=== PATIENT | male | born 1980 | race Caucasian/White ===

== ENCOUNTER 2016-04-08 23:03 | Emergency (ER) | payer SELFPAY ==
[~2016-04-08] VITALS: Ht 188 cm; Wt 90.7 kg
[2016-04-08] MEDS ORDERED: IV NS 0.9% 1,000 ML BAG IV ONE ×2 (23:30)
[2016-04-08] MEDS ORDERED: HYDROMORPHONE INJ 2 MG/ML DISP.SYRIN IV ONE (23:30)
[2016-04-08] MEDS ORDERED: ONDANSETRON HCL/PF 4 MG/2 ML VIAL IVP ONE (23:30)
[2016-04-08] MEDS ORDERED: ONDANSETRON HCL/PF 4 MG/2 ML VIAL ONE (23:42)
[2016-04-08] MEDS ORDERED: HYDROMORPHONE 1 MG/1 ML DISP.SYRIN ONE (23:42)
[2016-04-08] MEDS ORDERED: IV SET PRIMARY 1 EA INFUS.SET MC ONE (23:42)
[2016-04-08] MEDS ORDERED: IV NS 0.9% 2,000 ML ONE (23:43)
[2016-04-08 23:44] LABS: BASOPHILS % (AUTO) 0.4 % (0.0-2.0); DIFF TOTAL % 100 %; EOSINOPHILS # (AUTO) 0.3 /CMM (0.0-0.7); EOSINOPHILS % (AUTO) 3.5 % (0.0-6.0); HEMATOCRIT 41 % (39-51); HEMOGLOBIN 13.7 g/dL (13.5-17.5); LYMPHOCYTES # (AUTO) 1.8 /CMM (0.8-4.8); LYMPHOCYTES % (AUTO) 18.4 % (20.0-44.0); MEAN CORPUSCULAR HEMOGLOBIN 30 PG (26.0-33.0); MEAN CORPUSCULAR HGB CONC 33 g/dl (31.0-36.0); MEAN CORPUSCULAR VOLUME 89 fL (80-96); MONOCYTES # (AUTO) 0.8 /CMM (0.1-1.30); MONOCYTES % (AUTO) 8.7 % (2.0-12.0); NEUTROPHILS # (AUTO) 6.7 /CMM (1.8-8.9); PLATELET COUNT (AUTO) 195 /CMM (150-450); RED BLOOD CELL COUNT(AUTO) 4.63 MIL/uL (4.5-6.0); WHITE BLOOD COUNT (AUTO) 9.8 K/uL (4.3-11.0)
[2016-04-08 23:52] LABS: CALCIUM, SERUM 8.3 mg/dL (8.5-10.1); CREATININE 1.2 mg/dL (0.6-1.3); POTASSIUM 3.5 mmol/L (3.5-5.1)
[2016-04-08 23:59] LABS: ALBUMIN 3.5 g/dL (3.4-5.0); BILIRUBIN,DIRECT 0.1 mg/dL (0.0-0.2); BILIRUBIN,TOTAL 0.3 mg/dL (0.2-1.0); INDIRECT BILIRUBIN 0.2 mg/dL (0.0-1.1); TOTAL PROTEIN, SERUM 7.9 g/dL (6.4-8.2)
[2016-04-09 01:33] VITALS: BP 134/68
[2016-04-09 02:48] LABS: INR 1.01 (0.87-1.13); PROTHROMBIN TIME 10.9 SECS (9.5-12.7)
== END 2016-04-09 01:33 | disposition home or self-care (01) ==
LOC: ER 23:03
DX: K64.8 Other hemorrhoids (principal); K62.89 Other specified diseases of anus and rectum; R79.1 Abnormal coagulation profile
CPT/HCPCS: 36415; 80048-TC; 80076-TC; 85025-TC; 85730-TC; A4606; J1170; J2405; J7030; Z7610